=== PATIENT | female | born 1975 | race Caucasian/White ===

== ENCOUNTER 2020-08-08 10:36 | Outpatient (CLI) | payer BC, SELFPAY ==
--- NOTE | 2020-08-08 10:41 | MM_ITS ---
WS: [id number] Bilateral screening digital mammogram, 08/08/2020 Clinical Data: SCREENING Comparison: None. Findings: The breast parenchymal pattern shows heterogeneous density No spiculated masses or clustered calcific ations are seen. There are no secondary signs of carcinoma. MM/[id number] Impression: 1. Negative bilateral mammogram with no prior exam for review. 2. Recommend annual screening mammograms. BIRADS: 1-Negative FOLLOW UP: 1 Year Follow-up The CAD coloring checker was used.
== END 2020-08-08 10:37 | disposition home or self-care (01) ==
LOC: RADSHAW 10:39
PROVIDERS: Family Provider Family Medicine; PCP Family Medicine; Visit Provider Family Medicine
DX: Z12.31 Encounter for screening mammogram for malignant neoplasm of breast (principal)
CPT/HCPCS: 77067